=== PATIENT | female | born 1950 | race Caucasian/White ===

== ENCOUNTER 2016-10-08 11:36 | Emergency (ER) | payer BC ==
[~2016-10-08 11:36] MED LIST: ATEN25TA PO; CYCL10TA2 PO; GLIM4TAB2 PO; HYDR-971 PO; LISI-338 PO
[2016-10-08] MEDS ORDERED: KETOROLAC TROMETHAMINE 30 MG/ML INJ. IV ONE (12:15)
[2016-10-08] MEDS ORDERED: fentaNYL PF VIAL 100 MCG/2 ML VIAL IV ONE ×2 (12:15→14:00)
[2016-10-08] MEDS ORDERED: ONDANSETRON PF 4 MG/2 ML VIAL. IV ONE (12:15)
[2016-10-08 12:26] LABS: BILIRUBIN,URINE NEGATIVE (NEG); GLUCOSE,URINE >=1000 mg/dL (NEG); NITRITE,URINE NEGATIVE (NEG); PH,URINE 5.5; PROTEIN,URINE NEGATIVE (NEG-TRACE); UROBILINOGEN,URINE 0.2 mg/dL (0.2 mg/dL)
[2016-10-08 12:38] LABS: BACTERIA,URINE 0 /HPF (0-FEW); RBC,URINE 0 /HPF (0-2); SQUAMOUS EPITHELIAL CELL,UR MOD /LPF; YEAST,URINE PRESENT /HPF
[2016-10-08 12:48] LABS: BASO # 0.1 x10^3/uL (0.0-0.2); BASO % 1 % (0-3); EOS % 1 % (0-3); HEMATOCRIT 47.7 % (36.0-47.0); LYMPH % 27 % (24-48); MEAN CORPUSCULAR HEMOGLOBIN 31 pg (25-35); MEAN CORPUSCULAR HGB CONC 34 g/dL (31-37); MEAN CORPUSCULAR VOLUME 94 fL (79-100); MONO % 7 % (0-9); NEUT % 65 % (31-73); PLATELET COUNT 199 x10^3/uL (140-400); RED CELL DISTRIBUTION WIDTH 13.4 % (11.5-14.5); WHITE BLOOD COUNT 7.7 x10^3/uL (4.0-11.0)
[2016-10-08 12:55] LABS: CREATININE 0.7 mg/dL (0.6-1.0); GFR 84.2; POTASSIUM 3.9 mmol/L (3.5-5.1)
[2016-10-08 13:02] LABS: ALBUMIN 3.3 g/dL (3.4-5.0); ALBUMIN/GLOBULIN RATIO 0.8 (1.0-1.7); TOTAL BILIRUBIN 0.4 mg/dL (0.2-1.0); TOTAL PROTEIN 7.3 g/dL (6.4-8.2)
[2016-10-08] MEDS ORDERED: IV NORMAL SALINE 1000ML BAG 1,000 ML IV ONE (13:15)
--- NOTE | 2016-10-08 13:19 | PHYS DOC ---
Past Medical History Past Medical History: Diabetes-Type II, Hypertension, Other Additional Past Medical Histor: "Some kind of hernia,"-pt touches her R)upper abd. Past Surgical History: Appendectomy, Hysterectomy, Other Additional Past Surgical Histo: left ankle, breast reduction Additional Information: 3/4 PPD since age 12. Alcohol Use: None Drug Use: None Adult General Chief Complaint Chief Complaint: FLANK PAIN HPI HPI Patient is a 66 year old female presenting to ED for evaluation of R abdomen and flank pain that started 2 days ago she says that it starts in her right flank and radiates towards her right lower abdomen and is associated with nausea but no fevers chills vomiting diarrhea constipation dysuria hematuria. She reports having a cholecystectomy in the past. She is in no obvious distress with normal vital signs. Review of Systems Review of Systems Constitutional: Denies fever or chills [] Eyes: Denies change in visual acuity, redness, or eye pain [] HENT: Denies nasal congestion or sore throat [] Respiratory: Denies cough or shortness of breath [] Cardiovascular: No additional information not addressed in HPI [] GI: + abdominal pain, nausea. No vomiting, bloody stools or diarrhea [] : Denies dysuria or hematuria [] Musculoskeletal: Denies back pain or joint pain [] Integument: Denies rash or skin lesions [] Neurologic: Denies headache, focal weakness or sensory changes [] Current Medications Current Medications Current Medications Medications (Trade) Dose Ordered Sig/Frederick Start Time Stop Time Status Last Admin Dose Admin Diazepam (Valium) 2.5 mg 1X ONCE 10/08/16 14:00 10/08/16 14:01 UNV Fentanyl Citrate (Fentanyl 2ml Vial) 50 mcg 1X ONCE 10/08/16 14:00 10/08/16 14:01 UNV Ketorolac Tromethamine (Toradol) 30 mg 1X ONCE 10/08/16 12:15 10/08/16 12:17 DC 10/08/16 12:15 30 MG Ondansetron HCl (Zofran) 8 mg 1X ONCE 10/08/16 12:15 10/08/16 12:17 DC 10/08/16 12:15 8 MG Sodium Chloride 1,000 ml @ 1,000 mls/hr 1X ONCE 10/08/16 13:15 10/08/16 14:14 10/08/16 13:29 1,000 MLS/HR Allergies Allergies Allergies Coded Allergies Type Severity Reaction Last Updated Verified Horse/Equine Containing Products Allergy Intermediate 04/07/16 No erythromycin base Allergy Intermediate Rash to Face 09/15/14 No horse dander Allergy Intermediate 04/07/16 No Physical Exam Physical Exam Constitutional: Well developed, well nourished, no acute distress, non-toxic appearance. [] HENT: Normocephalic, atraumatic, bilateral external ears normal, oropharynx moist, no oral exudates, nose normal. [] Eyes: PERRLA, EOMI, conjunctiva normal, no discharge. [] Neck: Normal range of motion, no tenderness, supple, no stridor. [] Cardiovascular:Heart rate regular rhythm, no murmur [] Lungs & Thorax: Bilateral breath sounds clear to auscultation [] Abdomen: Bowel sounds normal, soft, + RUQ, RLQ tenderness, No rebound or guarding, no masses, no pulsatile masses. [] Skin: Warm, dry, no erythema, no rash. [] Back: No tenderness, + R CVA tenderness. [] Extremities: No tenderness, no cyanosis, no clubbing, ROM intact, no edema. [] Neurologic: Alert and oriented X 3, normal motor function, normal sensory function, no focal deficits noted. [] Current Patient Data Vital Signs Vital Signs Date Time Temp Pulse Resp B/P (MAP) Pulse Ox O2 Delivery O2 Flow Rate FiO2 10/08/16 12:00 97.6 63 20 140/65 (90) 99 Room Air 97.6 Lab Values Laboratory Tests Test 10/08/16 11:50 10/08/16 12:35 Urine Collection Type Unknown Urine Color Yellow Urine Clarity Clear Urine pH 5.5 Urine Specific [place] 1.010 Urine Protein Negative mg/dL (NEG-TRACE) Urine Glucose (UA) >=1000 mg/dL (NEG) Urine Ketones (Stick) Trace mg/dL (NEG) Urine Blood Negative (NEG) Urine Nitrite Negative (NEG) Urine Bilirubin Negative (NEG) Urine Urobilinogen Dipstick 0.2 mg/dL (0.2 mg/dL) Urine Leukocyte Esterase Negative (NEG) Urine RBC 0 /HPF (0-2) Urine WBC 1-4 /HPF (0-4) Urine Squamous Epithelial Cells Mod /LPF Urine Bacteria 0 /HPF (0-FEW) Urine Yeast Present /HPF White Blood Count 7.7 x10^3/uL (4.0-11.0) Red Blood Count 5.10 x10^6/uL (3.50-5.40) Hemoglobin 16.0 g/dL (12.0-15.5) H Hematocrit 47.7 % (36.0-47.0) H Mean Corpuscular Volume 94 fL (79-100) Mean Corpuscular Hemoglobin 31 pg (25-35) Mean Corpuscular Hemoglobin Concent 34 g/dL (31-37) Red Cell Distribution Width 13.4 % (11.5-14.5) Platelet Count 199 x10^3/uL (140-400) Neutrophils (%) (Auto) 65 % (31-73) Lymphocytes (%) (Auto) 27 % (24-48) Monocytes (%) (Auto) 7 % (0-9) Eosinophils (%) (Auto) 1 % (0-3) Basophils (%) (Auto) 1 % (0-3) Neutrophils # (Auto) 5.0 x10^3uL (1.8-7.7) Lymphocytes # (Auto) 2.0 x10^3/uL (1.0-4.8) Monocytes # (Auto) 0.6 x10^3/uL (0.0-1.1) Eosinophils # (Auto) 0.0 x10^3/uL (0.0-0.7) Basophils # (Auto) 0.1 x10^3/uL (0.0-0.2) Sodium Level 135 mmol/L (136-145) L Potassium Level 3.9 mmol/L (3.5-5.1) Chloride Level 99 mmol/L (98-107) Carbon Dioxide Level 26 mmol/L (21-32) Anion Gap 10 (6-14) Blood Urea Nitrogen 15 mg/dL (7-20) Creatinine 0.7 mg/dL (0.6-1.0) Estimated GFR (Cockcroft-Gault) 84.2 BUN/Creatinine Ratio 21 (6-20) H Glucose Level 300 mg/dL (70-99) H Calcium Level 9.0 mg/dL (8.5-10.1) Total Bilirubin 0.4 mg/dL (0.2-1.0) Aspartate Amino Transferase (AST) 12 U/L (15-37) L Alanine Aminotransferase (ALT) 17 U/L (14-59) Alkaline Phosphatase 137 U/L (46-116) H Total Protein 7.3 g/dL (6.4-8.2) Albumin 3.3 g/dL (3.4-5.0) L Albumin/Globulin Ratio 0.8 (1.0-1.7) L Lipase 368 U/L (73-393) Laboratory Tests 10/08/16 12:35 Laboratory Tests 10/08/16 12:35 EKG EKG [] Radiology/Procedures Radiology/Procedures EXAM: Abdomen and pelvis CT without intravenous contrast. HISTORY: Flank pain. TECHNIQUE: Computed tomographic images of the abdomen and pelvis were obtained without contrast. Multiplanar reformatting was performed. COMPARISON: None. FINDINGS: Evaluation of the lower thorax demonstrates lingular and anterior medial right middle lobe groundglass and nodular opacities, likely post infectious or post inflammatory. There is mild associated bronchiectasis. There are a few additional nodular and groundglass opacities with associated bronchiectasis within the bilateral lower lobes, also likely post infectious or post inflammatory. There is no effusion. There is fatty infiltration of the of the liver along the falciform ligament. The gallbladder is distended, likely due to the preprandial status of the patient. There is common bile duct dilatation extending to the ampulla. No obstructing lesion is seen. The pancreas, spleen and adrenal glands are unremarkable. There is a 2.2 cm cyst within the medial lower mid zone of the right kidney. There are a few punctate densities within both kidneys which may be due to tiny developing stones. There is no evidence of obstructive uropathy. There is moderate colonic stool. No abnormally thickened or dilated loop of bowel seen. There are few distal colonic diverticula. There is heavily calcified atherosclerotic plaque within the aorta and iliac bifurcation. There is suspected associated stenosis within the distal abdominal aorta. The bladder is unremarkable. The uterus is surgically absent. No pathologically enlarged lymph node is seen. There is no suspicious osseous lesion. IMPRESSION: 1. No evidence of obstructive uropathy. There are faint foci of slight hyperdensity within both kidneys, artifactual or due to tiny developing stones. 2. Distal colonic diverticulosis. 3. Biliary ductal dilatation. This is greater than expected for patient age. ERCP or MRCP can be performed if there is concern for an obstructing etiology. 4. 2.2 cm simple appearing right renal cyst. 5. Multiple groundglass and nodular opacities within the right middle lobe, lingular and bilateral lower lobes. The presence of bronchiectasis within these locations favors a chronic etiology. The possibility of superimposed atypical infiltrate is not excluded. Follow-up can be performed to confirm stability or resolution. PQRS Compliance Statement: One or more of the following individualized dose reduction techniques were utilized for this examination: 1. Automated exposure control 2. Adjustment of the mA and/or kV according to patient size 3. Use of iterative reconstruction technique DICTATED and SIGNED BY: JEAN PAUL LEWIS MD DATE: 10/08/16 1330 Course & Med Decision Making Course & Med Decision Making Patient's workup is fairly unremarkable. Labs and CT are benign. She did have dilated common bile duct however her labs are normal including her bilirubin and LFTs. Patient says her pain is much improved. I discussed admission for possible ERCP versus MRCP however patient said that she is feeling better and wants to go home and would like to pursue further workup as an outpatient. I think that this is reasonable given she appears well and she can tolerate by mouth and her labs are normal. I told her that if she has intractable pain fevers vomiting jaundice or other general concerns that she should return to the emergency department but otherwise can follow with a GI physician as an outpatient. Patient aware and agreeable with plan for discharge and verbalized understanding of the need for short-term follow-up and strict ER return precautions discussed as above. Dragon Disclaimer Dragon Disclaimer This electronic medical record was generated, in whole or in part, using a voice recognition dictation system. Departure Departure Impression: Primary Impression: Abdominal pain Additional Impression: Flank pain Disposition: HOME, SELF-CARE Condition: GOOD Referrals: LEONELA DIA MD Patient Instructions: Abdominal Pain (Nonspecific) Additional Instructions: Eat a soft non-irritating diet and follow with the GI physician next week and come back to the ER sooner with worsening pain fevers vomiting or other general concerns. Scripts Ondansetron (ZOFRAN ODT) 4 Mg Tab.rapdis 4 MG PO BID Y for NAUSEA/VOMITING, #14 TAB Prov: MAHNAZ ADAMS DO 10/08/16 Hydrocodone/Apap 5-325 (NORCO 5-325 TABLET) 1 Each Tablet 1 TAB PO PRN Q6HRS Y for PAIN, #20 TAB 0 Refills Prov: MAHNAZ ADAMS DO 10/08/16 Problem Qualifiers Primary Impression: Abdominal pain Abdominal location: right lower quadrant Qualified Codes: R10.31 - Right lower quadrant pain MAHNAZ ADAMS DO October 08, 2016 13:19
--- NOTE | 2016-10-08 13:36 | RAD ---
EXAM: Abdomen and pelvis CT without intravenous contrast. HISTORY: Flank pain. TECHNIQUE: Computed tomographic images of the abdomen and pelvis were obtained without contrast. Multiplanar reformatting was performed. COMPARISON: None. FINDINGS: Evaluation of the lower thorax demonstrates lingular and anterior medial right middle lobe groundglass and nodular opacities, likely post infectious or post inflammatory. There is mild associated bronchiectasis. There are a few additional nodular and groundglass opacities with associated bronchiectasis within the bilateral lower lobes, also likely post infectious or post inflammatory. There is no effusion. There is fatty infiltration of the of the liver along the falciform ligament. The gallbladder is distended, likely due to the preprandial status of the patient. There is common bile duct dilatation extending to the ampulla. No obstructing lesion is seen. The pancreas, spleen and adrenal glands are unremarkable. There is a 2.2 cm cyst within the medial lower mid zone of the right kidney. There are a few punctate densities within both kidneys which may be due to tiny developing stones. There is no evidence of obstructive uropathy. There is moderate colonic stool. No abnormally thickened or dilated loop of bowel seen. There are few distal colonic diverticula. There is heavily calcified atherosclerotic plaque within the aorta and iliac bifurcation. There is suspected associated stenosis within the distal abdominal aorta. The bladder is unremarkable. The uterus is surgically absent. No pathologically enlarged lymph node is seen. There is no suspicious osseous lesion. IMPRESSION: 1. No evidence of obstructive uropathy. There are faint foci of slight hyperdensity within both kidneys, artifactual or due to tiny developing stones. 2. Distal colonic diverticulosis. 3. Biliary ductal dilatation. This is greater than expected for patient age. ERCP or MRCP can be performed if there is concern for an obstructing etiology. 4. 2.2 cm simple appearing right renal cyst. 5. Multiple groundglass and nodular opacities within the right middle lobe, lingular and bilateral lower lobes. The presence of bronchiectasis within these locations favors a chronic etiology. The possibility of superimposed atypical infiltrate is not excluded. Follow-up can be performed to confirm stability or resolution. PQRS Compliance Statement: One or more of the following individualized dose reduction techniques were utilized for this examination: 1. Automated exposure control 2. Adjustment of the mA and/or kV according to patient size 3. Use of iterative reconstruction technique
[2016-10-08 14:00] VITALS: BP 151/67
[2016-10-08] MEDS ORDERED: diazePAM 5 MG TABLET PO ONE (14:00)
[2016-10-08] MEDS ORDERED: HYDR-971 PO (14:04)
[2016-10-08] MEDS ORDERED: ONDA4TAB10 PO (14:04)
== END 2016-10-08 14:24 | disposition home or self-care (01) ==
LOC: ER 11:36
DX: R10.31 Right lower quadrant pain (principal); R11.0 Nausea; E11.9 Type 2 diabetes mellitus without complications; I10 Essential (primary) hypertension; Z90.710 Acquired absence of both cervix and uterus; Z90.49 Acquired absence of other specified parts of digestive tract; F17.200 Nicotine dependence, unspecified, uncomplicated; Z88.1 Allergy status to other antibiotic agents; Z91.048 Other nonmedicinal substance allergy status
CPT/HCPCS: 36415; 74176; 80053; 81001; 83690; 85027; 96361; 96374; 96375; 99285; J1885; J2405; J3010; J7030

== ENCOUNTER 2017-01-31 08:29 | Observation (INO) | payer BC ==
[~2017-01-31] VITALS: Ht 156.2 cm; Wt 51.4 kg
[~2017-01-31 08:29] MED LIST changes: +ONDA4TAB10 PO
--- NOTE | 2017-01-31 09:07 | PHYS DOC ---
Past Medical History Past Medical History: Diabetes-Type II, Hypertension, Other Additional Past Medical Histor: "Some kind of hernia,"-pt touches her R)upper abd. Past Surgical History: Appendectomy, Hysterectomy, Other Additional Past Surgical Histo: left ankle, breast reduction Alcohol Use: None Drug Use: None Adult General Chief Complaint Chief Complaint: RIB PAIN [facility] HPI Patient is a 66 year old female presents to the ED complaining of left rib tenderness 1 month. Patient states the pain has been worsening over the last month. Describes pain as sharp with palpation. Rates pain 7 out of 10. Patient states she has been diagnosed with hypertension and diabetes (type 2) but has not been taking her medications for over 3 months. Denies shortness of breath, dizziness, syncope, fever, headache, nausea/vomiting or abdominal pain. Review of Systems Review of Systems Constitutional: Denies fever or chills [] Eyes: Denies change in visual acuity, redness, or eye pain [] HENT: Denies nasal congestion or sore throat [] Respiratory: Denies cough or shortness of breath [] Cardiovascular: No additional information not addressed in HPI [] GI: Denies abdominal pain, nausea, vomiting, bloody stools or diarrhea [] : Denies dysuria or hematuria [] Musculoskeletal: Denies back pain or joint pain [] Integument: Denies rash or skin lesions [] Neurologic: Denies headache, focal weakness or sensory changes [] Endocrine: Complains of polydipsia. [] Current Medications Current Medications Current Medications Medications (Trade) Dose Ordered Sig/Frederick Start Time Stop Time Status Last Admin Dose Admin Info (Do NOT chart on this entry -- for MONITORING) 1 each PRN DAILY PRN 01/31/17 10:30 02/02/17 10:29 Insulin Human Regular (NovoLIN R VIAL) 10 unit 1X ONCE 01/31/17 10:45 01/31/17 10:46 DC 01/31/17 11:01 10 UNIT Iohexol (Omnipaque 300 Mg/ml) 75 ml STK-MED ONCE 01/31/17 10:32 01/31/17 10:33 DC Ketorolac Tromethamine (Toradol) 30 mg 1X ONCE 01/31/17 09:15 01/31/17 09:16 DC 01/31/17 10:03 30 MG Sodium Chloride 1,000 ml @ 1,000 mls/hr 1X ONCE 01/31/17 10:45 01/31/17 11:44 DC 01/31/17 11:00 1,000 MLS/HR Allergies Allergies Allergies Coded Allergies Type Severity Reaction Last Updated Verified Horse/Equine Containing Products Allergy Intermediate 01/31/17 No erythromycin base Allergy Intermediate Rash to Face 01/31/17 No horse dander Allergy Intermediate 01/31/17 No Physical Exam Physical Exam Constitutional: Well developed, well nourished, no acute distress, non-toxic appearance. [] HENT: Normocephalic, atraumatic, bilateral external ears normal, oropharynx moist, no oral exudates, nose normal. [] Eyes: PERRLA, EOMI, conjunctiva normal, no discharge. [] Neck: Normal range of motion, no tenderness, supple, no stridor. [] Cardiovascular:Heart rate regular rhythm, no murmur [] Lungs & Thorax: MILD LEFT ANTERIOR LOWER RIB TENDERNESS. Bilateral breath sounds clear to auscultation [] Abdomen: Bowel sounds normal, soft, no tenderness, no masses, no pulsatile masses. [] Skin: Warm, dry, no erythema, no rash. [] Back: No tenderness, no CVA tenderness. [] Extremities: No tenderness, no cyanosis, no clubbing, ROM intact, no edema. [] Neurologic: Alert and oriented X 3, normal motor function, normal sensory function, no focal deficits noted. [] Psychologic: Affect normal, judgement normal, mood normal. [] Current Patient Data Vital Signs Vital Signs Date Time Temp Pulse Resp B/P (MAP) Pulse Ox O2 Delivery O2 Flow Rate FiO2 01/31/17 10:55 78 18 124/59 (80) 95 Room Air 01/31/17 08:37 98.1 98.1 Lab Values Laboratory Tests Test 01/31/17 09:55 01/31/17 10:35 White Blood Count 9.0 x10^3/uL (4.0-11.0) Red Blood Count 4.88 x10^6/uL (3.50-5.40) Hemoglobin 15.6 g/dL (12.0-15.5) H Hematocrit 45.7 % (36.0-47.0) Mean Corpuscular Volume 94 fL (79-100) Mean Corpuscular Hemoglobin 32 pg (25-35) Mean Corpuscular Hemoglobin Concent 34 g/dL (31-37) Red Cell Distribution Width 13.4 % (11.5-14.5) Platelet Count 223 x10^3/uL (140-400) Neutrophils (%) (Auto) 66 % (31-73) Lymphocytes (%) (Auto) 22 % (24-48) L Monocytes (%) (Auto) 9 % (0-9) Eosinophils (%) (Auto) 1 % (0-3) Basophils (%) (Auto) 1 % (0-3) Neutrophils # (Auto) 6.0 x10^3uL (1.8-7.7) Lymphocytes # (Auto) 2.0 x10^3/uL (1.0-4.8) Monocytes # (Auto) 0.8 x10^3/uL (0.0-1.1) Eosinophils # (Auto) 0.1 x10^3/uL (0.0-0.7) Basophils # (Auto) 0.1 x10^3/uL (0.0-0.2) Prothrombin Time 11.8 SEC (11.7-14.0) Prothrombin Time INR 0.9 (0.8-1.1) Sodium Level 136 mmol/L (136-145) Potassium Level 4.2 mmol/L (3.5-5.1) Chloride Level 100 mmol/L (98-107) Carbon Dioxide Level 27 mmol/L (21-32) Anion Gap 9 (6-14) Blood Urea Nitrogen 22 mg/dL (7-20) H Creatinine 0.8 mg/dL (0.6-1.0) Estimated GFR (Cockcroft-Gault) 72.2 Glucose Level 603 mg/dL (70-99) *H Calcium Level 9.1 mg/dL (8.5-10.1) Total Bilirubin 0.2 mg/dL (0.2-1.0) Direct Bilirubin < 0.1 mg/dL (0.0-0.2) Aspartate Amino Transferase (AST) 12 U/L (15-37) L Alanine Aminotransferase (ALT) 19 U/L (14-59) Alkaline Phosphatase 178 U/L (46-116) H Creatine Kinase 44 U/L (26-192) Creatine Kinase MB (Mass) 1.1 ng/mL (0.0-3.6) Creatine Kinase MB Relative Index % (0-4) Troponin I Quantitative < 0.017 ng/mL (0.000-0.055) Total Protein 6.7 g/dL (6.4-8.2) Albumin 3.1 g/dL (3.4-5.0) L Lipase 234 U/L (73-393) Acetone Level Neg (NEG) Urine Collection Type Unknown Urine Color Yellow Urine Clarity Clear Urine pH 5.5 Urine Specific [place] >=1.030 Urine Protein Negative mg/dL (NEG-TRACE) Urine Glucose (UA) >=1000 mg/dL (NEG) Urine Ketones (Stick) Negative mg/dL (NEG) Urine Blood Negative (NEG) Urine Nitrite Negative (NEG) Urine Bilirubin Small (NEG) Urine Urobilinogen Dipstick 0.2 mg/dL (0.2 mg/dL) Urine Leukocyte Esterase Negative (NEG) Urine RBC 0 /HPF (0-2) Urine WBC Occ /HPF (0-4) Urine Squamous Epithelial Cells Occ /LPF Urine Bacteria 0 /HPF (0-FEW) Urine Yeast Present /HPF Laboratory Tests 01/31/17 09:55 Laboratory Tests 01/31/17 09:55 EKG EKG [] Radiology/Procedures Radiology/Procedures PROCEDURE: RIBS LEFT AND PA CHEST Indication pain. A single view of the chest was obtained as well as films targeted to left ribs. There are probable background changes of fibrosis. There is some volume loss at the left lung base probably reflecting atelectasis or scar. The appearance is similar to the previous exam. There is a possible subtle nodule at the right lung base. Follow-up imaging advised. A parenchymal nodule is not excluded. There is no pleural fluid or pneumothorax. Films of left ribs appear unremarkable. IMPRESSION: No acute finding in the chest. Possible subtle nodule at the right lung base. See above discussion. Normal plain films left ribs. [] PROCEDURE: CT CHEST W/CONTRAST CT of the chest with contrast, 01/31/2017: History: Left rib pain Multidetector CT imaging was performed following an IV bolus injection of iodinated contrast material. There is moderate calcific plaquing of the thoracic aorta and its branches without evidence of aneurysm. Minimal coronary artery calcifications are present. A small precarinal lymph node demonstrates a short axis dimension of 9 mm. Several small lymph nodes are present at the AP window level. No definite mediastinal or hilar adenopathy is seen. There are mild emphysematous changes in the lungs. There are mild tree-in-bud type opacities present anteromedially in the right upper lobe. There are streaky parenchymal opacities with underlying bronchiectasis in the inferolateral medial aspect of the right middle lobe. Similar densities are present in the left lung base and anterior inferior aspect of the lingula. The findings suggest scarring and/or chronic inflammation. There is no evidence of pleural fluid. There is a slightly spiculated 8 mm noncalcified nodule in the posterior aspect of the left upper lobe. It abuts the oblique fissure but does not have the typical appearance of a benign perifissural nodule. This is best seen on axial image 65 of series #6. There are mild scattered degenerative changes in the spine. No rib fracture is identified. IMPRESSION: 1. Emphysema. 2. Mild tree-in-bud opacities in the right upper lobe may be due to active infection or scarring. 3. Several foci of bronchiectasis and probable scarring in the lower chest bilaterally as described above. 4. Small spiculated nodule in the left upper lobe raising the possibility of a lung malignancy. The lesion is considered to be of borderline size for PET/CT evaluation. Course & Med Decision Making Course & Med Decision Making Pertinent Labs and Imaging studies reviewed. (See chart for details) []EKG shows normal sinus rhythm at 79 bpm. No STEMI or acute changes. Patients glucose found to be 600's. Patient given 10 units of insulin and fluids. Well appearing. Reviewed other labs and imaging. Will admit for further work-up and admission. Discussed case with Dr. Ceballos. Agrees to admission and further management. Dragon Disclaimer Dragon Disclaimer This electronic medical record was generated, in whole or in part, using a voice recognition dictation system. Departure Departure Impression: Primary Impression: Hyperglycemia Additional Impression: Lung nodule Disposition: ADMITTED INPATIENT Admitting Physician: Deirdre Ceballos Condition: STABLE Referrals: NO PCP (PCP) Problem Qualifiers DIANE WAYNE Jan 31, 2017 09:07
[2017-01-31] MEDS ORDERED: KETOROLAC 30 MG/ML INJ. IV ONE (09:15)
--- NOTE | 2017-01-31 09:36 | RAD ---
Indication pain. A single view of the chest was obtained as well as films targeted to left ribs. There are probable background changes of fibrosis. There is some volume loss at the left lung base probably reflecting atelectasis or scar. The appearance is similar to the previous exam. There is a possible subtle nodule at the right lung base. Follow-up imaging advised. A parenchymal nodule is not excluded. There is no pleural fluid or pneumothorax. Films of left ribs appear unremarkable. IMPRESSION: No acute finding in the chest. Possible subtle nodule at the right lung base. See above discussion. Normal plain films left ribs.
--- NOTE | 2017-01-31 10:03 | EKG ---
[facility] [address] [place] [address] Test Date: 2017-01-31 Test Time: 09:43:33 Pat Name: MARIELA IZQUIERDO Department: Room: Gender: F Media/Instructional Designer: : 1950 Requested By: DIANE WAYNE Order Number: [id number] Reading MD: Gisele Zuñiga Measurements Intervals [place] Rate: 79 P: 90 [place]: 158 QRS: 51 QRSD: 82 T: 39 QT: 380 QTc: 437 Interpretive Statements SINUS RHYTHM NORMAL ECG Electronically Signed On 02-05-2017 21:46:39 CDT by Gisele Zuñiga
[2017-01-31 10:11] LABS: BASO # 0.1 x10^3/uL (0.0-0.2); BASO % 1 % (0-3); EOS % 1 % (0-3); HEMATOCRIT 45.7 % (36.0-47.0); HEMOGLOBIN 15.6 g/dL (12.0-15.5); LYMPH % 22 % (24-48); MEAN CORPUSCULAR HEMOGLOBIN 32 pg (25-35); MEAN CORPUSCULAR HGB CONC 34 g/dL (31-37); MEAN CORPUSCULAR VOLUME 94 fL (79-100); MONO % 9 % (0-9); NEUT % 66 % (31-73); PLATELET COUNT 223 x10^3/uL (140-400); RED BLOOD COUNT 4.88 x10^6/uL (3.50-5.40); RED CELL DISTRIBUTION WIDTH 13.4 % (11.5-14.5)
[2017-01-31] MEDS ORDERED: IOHEXOL 300 MG/ML 75 ML VIAL IV ONE (10:15)
[2017-01-31 10:23] LABS: ALBUMIN 3.1 g/dL (3.4-5.0); ALK PHOS 178 U/L (46-116); ALT (SGPT) 19 U/L (14-59); ANION GAP 9 (6-14); AST (SGOT) 12 U/L (15-37); BLOOD UREA NITROGEN 22 mg/dL (7-20); CALCIUM 9.1 mg/dL (8.5-10.1); CARBON DIOXIDE 27 mmol/L (21-32); CHLORIDE 100 mmol/L (98-107); CREATININE 0.8 mg/dL (0.6-1.0); DIRECT BILIRUBIN < 0.1 mg/dL (0.0-0.2); GFR 72.2; POTASSIUM 4.2 mmol/L (3.5-5.1); SODIUM 136 mmol/L (136-145); TOTAL BILIRUBIN 0.2 mg/dL (0.2-1.0); TOTAL PROTEIN 6.7 g/dL (6.4-8.2)
[2017-01-31 10:24] LABS: INR 0.9 (0.8-1.1); PROTHROMBIN TIME PATIENT 11.8 SEC (11.7-14.0)
[2017-01-31 10:26] LABS: GLUCOSE 603 mg/dL (70-99)
[2017-01-31 10:29] LABS: CKMB MASS 1.1 ng/mL (0.0-3.6); CREATINE KINASE 44 U/L (26-192)
[2017-01-31] MEDS ORDERED: CONTRAST GIVEN MC PRN (10:30)
[2017-01-31] MEDS ORDERED: IOHEXOL 300 MG/ML 75 ML VIAL ONE (10:32)
[2017-01-31 10:44] LABS: BILIRUBIN,URINE SMALL (NEG); GLUCOSE,URINE >=1000 mg/dL (NEG); NITRITE,URINE NEGATIVE (NEG); PH,URINE 5.5; PROTEIN,URINE NEGATIVE (NEG-TRACE); UROBILINOGEN,URINE 0.2 mg/dL (0.2 mg/dL)
[2017-01-31] MEDS ORDERED: IV NORMAL SALINE 1000ML BAG 1,000 ML IV ONE (10:45)
[2017-01-31] MEDS ORDERED: INSULIN REGULAR 100 UNIT/ML 10ML VIAL. IV ONE (10:45)
--- NOTE | 2017-01-31 11:05 | RAD ---
CT of the chest with contrast, 01/31/2017: History: Left rib pain Multidetector CT imaging was performed following an IV bolus injection of iodinated contrast material. There is moderate calcific plaquing of the thoracic aorta and its branches without evidence of aneurysm. Minimal coronary artery calcifications are present. A small precarinal lymph node demonstrates a short axis dimension of 9 mm. Several small lymph nodes are present at the AP window level. No definite mediastinal or hilar adenopathy is seen. There are mild emphysematous changes in the lungs. There are mild tree-in-bud type opacities present anteromedially in the right upper lobe. There are streaky parenchymal opacities with underlying bronchiectasis in the inferolateral medial aspect of the right middle lobe. Similar densities are present in the left lung base and anterior inferior aspect of the lingula. The findings suggest scarring and/or chronic inflammation. There is no evidence of pleural fluid. There is a slightly spiculated 8 mm noncalcified nodule in the posterior aspect of the left upper lobe. It abuts the oblique fissure but does not have the typical appearance of a benign perifissural nodule. This is best seen on axial image 65 of series #6. There are mild scattered degenerative changes in the spine. No rib fracture is identified. IMPRESSION: 1. Emphysema. 2. Mild tree-in-bud opacities in the right upper lobe may be due to active infection or scarring. 3. Several foci of bronchiectasis and probable scarring in the lower chest bilaterally as described above. 4. Small spiculated nodule in the left upper lobe raising the possibility of a lung malignancy. The lesion is considered to be of borderline size for PET/CT evaluation. PQRS Compliance Statement: One or more of the following individualized dose reduction techniques were utilized for this examination: 1. Automated exposure control 2. Adjustment of the mA and/or kV according to patient size 3. Use of iterative reconstruction technique
[2017-01-31 11:11] LABS: BACTERIA,URINE 0 /HPF (0-FEW); RBC,URINE 0 /HPF (0-2); SQUAMOUS EPITHELIAL CELL,UR OCC /LPF; WBC,URINE OCC /HPF (0-4); YEAST,URINE PRESENT /HPF
[2017-01-31] MEDS ORDERED: ONDANSETRON PF 4 MG/2 ML VIAL. IV PRN (11:45)
--- NOTE | 2017-01-31 14:08 | PDOC1 ---
History and Physical Date of Admission Date of Admission DATE: 01/31/17 TIME: 14:02 Identification/Chief Complaint Chief Complaint chest pain Problems: Source Source: Chart review, Patient History of Present Illness History of Present Illness Miss Bean is a 66 year old female admit for chest pain, worsening left rib tenderness 1 month. pain is sharp, better after IV toradol in ER, pain 7/10, now 5/10 Hx htn and DM2, she feels treated well with diet and weight loss, she lost over 80 lbs intentionally to control her DM2, and has been off meds for over a year, weigth stable > 1 year no doctor visit > 1 year Past Medical History Cardiovascular: No pertinent hx Pulmonary: No pertinent hx GI: No pertinent hx Heme/Onc: No pertinent hx Hepatobiliary: No pertinent hx Musculoskeletal: low back pain Rheumatologic: No pertinent hx ENT: No pertinent hx Renal/: No pertinent hx Endocrine: Diabetes Family History Family History: No Significant Social History Smoke: <1 pack per day ALCOHOL: none Drugs: None Current Problem List Problem List Problems Medical Problems: (1) Hyperglycemia Status: Acute (2) Lung nodule Status: Acute Problems: Current Medications Current Medications Current Medications Ketorolac Tromethamine (Toradol) 30 mg 1X ONCE IV Last administered on 10:03; Start 01/31/17 at 09:15; Stop 01/31/17 at 09:16; Status DC Iohexol (Omnipaque 300 Mg/ml) 75 ml 1X ONCE IV Last administered on 01/31/17t 10:35; Start 01/31/17 at 10:15; Stop 01/31/17 at 10:16; Status DC Info (Do NOT chart on this entry -- for MONITORING) 1 each PRN DAILY PRN MC SEE COMMENTS; Start 01/31/17 at 10:30; Stop 02/02/17 at 10:29 Iohexol (Omnipaque 300 Mg/ml) 75 ml STK-MED ONCE .ROUTE ; Start 01/31/17 at 10: 32; Stop 01/31/17 at 10:33; Status DC Sodium Chloride 1,000 ml @ 1,000 mls/hr 1X ONCE IV Last administered on t 11:00; Start 01/31/17 at 10:45; Stop 01/31/17 at 11:44; Status DC Insulin Human Regular (NovoLIN R VIAL) 10 unit 1X ONCE IV Last administered on 01/31/17t 11:01; Start 01/31/17 at 10:45; Stop 01/31/17 at 10:46; Status DC Ondansetron HCl (Zofran) 4 mg PRN Q8HRS PRN IV NAUSEA/VOMITING; Start 01/31/17 at 11:45; Stop 02/01/17 at 11:44 Active Scripts Active Zofran Odt (Ondansetron) 4 Mg Tab.rapdis 4 Mg PO BID PRN [place] 5-325 Tablet (Acetaminophen/Hydrocodone Bitart) 1 Each Tablet 1 Tab PO PRN Q6HRS PRN [place] 5-325 Tablet (Acetaminophen/Hydrocodone Bitart) 1 Each Tablet 1 Tab PO PRN Q6HRS PRN Reported Cyclobenzaprine Hcl 10 Mg Tablet 1 Tab PO QHS Lisinopril 5 Mg Tablet 1 Tab PO DAILY Glimepiride 4 Mg Tablet 1 Tab PO DAILY Atenolol 25 Mg Tablet 1 Tab PO DAILY Allergies Allergies: Coded Allergies: Horse/Equine Containing Products (Unverified Allergy, Intermediate, ) erythromycin base (Unverified Allergy, Intermediate, Rash to Face, 01/31/17 ) horse dander (Unverified Allergy, Intermediate, 01/31/17) ROS General: No: Chills, Night Sweats, Fatigue, Malaise, Other PSYCHOLOGICAL ROS: YES: Sleep disturbances, No: Anxiety, Behavioral Disorder, Concentration difficultie, Decreased libido , Depression, Disorientation, Hallucinations, Hostility, Irritablity, Memory difficulties, Mood Swings, Obsessive thoughts, Other Eyes: No Blurry vision, No Decreased vision, No Double vision, No Dry eyes, No Excessive tearing, No Eye Pain, No Itchy Eyes, No Loss of vision, No Photophobia , No Scotomata, No Uses contacts, No Uses glasses, No Other HEENT: No: Heacaches, Visual Changes, Hearing change, Nasal congestion, Nasal discharge, Oral lesions, Sinus pain, Sore Throat, Epistaxis, Sneezing, Snoring, Tinnitus, Vertigo, Vocal changes, Other Respiratory: YES: Cough, No: Hemoptysis, Orthopnea, Pleuritic Pain, Shortness of breath, SOB with excertion, Sputum Changes, Stridor, Tachypnea, Wheezing, Other Cardiovascular: yes Chest Pain Gastrointestinal: No Nausea, No Vomiting, No Abdominal Pain, No Diarrhea, No Constipation, No Melena, No Hematochezia, No Other Genitourinary: No Dysuria, No Frequency, No Incontinence, No Hematuria, No Retention, No Discharge, No Urgency, No Pain, No Flank Pain, No Other, No , No , No , No , No , No , No Musculoskeletal: No Gait Disturbance, No Joint Pain, No Joint Stiffness, No Joint Swelling, No Muscle Pain, No Muscular Weakness, No Pain In:, No Swelling In:, No Other Neurological: No Behavorial Changes, No Bowel/Bladder ControlChng, No Confusion , No Dizziness, No Gait Disturbance, No Headaches, No Impaired Coord/balance, No Memory Loss, No Numbness/Tingling, No Seizures, No Speech Problems, No Tremors, No Visual Changes, No Weakness, No Other Skin: Yes Dry Skin, No Eczema, No Hair Changes, No Lumps, No Mole Changes, No Mottling, No Nail Changes, No Pruritus, No Rash, No Skin Lesion Changes, No Other, No Acne Physical Exam General: Alert, Oriented X3, Cooperative, No acute distress HEENT: Atraumatic, PERRLA, EOMI, Mucous membr. moist/pink Lungs: Normal air movement, Other (no wheeze) Heart: no gallops, no murmurs Abdomen: Normal bowel sounds, Soft Rectal Exam: not examined Extremities: No clubbing, No edema, Normal pulses Skin: No rashes, No breakdown, No significant lesion Neuro: Normal speech, Normal tone, Sensation intact Psych/Mental Status: Mood NL Vitals Vitals Vital Signs Date Time Temp Pulse Resp B/P (MAP) Pulse Ox O2 Delivery O2 Flow Rate FiO2 01/31/17 13:47 68 21 127/58 (81) 95 Room Air 01/31/17 08:37 98.1 98.1 Labs Labs Laboratory Tests Test 01/31/17 09:55 01/31/17 10:35 01/31/17 11:55 01/31/17 12:47 White Blood Count 9.0 x10^3/uL (4.0-11.0) Red Blood Count 4.88 x10^6/uL (3.50-5.40) Hemoglobin 15.6 g/dL (12.0-15.5) Hematocrit 45.7 % (36.0-47.0) Mean Corpuscular Volume 94 fL (79-100) Mean Corpuscular Hemoglobin 32 pg (25-35) Mean Corpuscular Hemoglobin Concent 34 g/dL (31-37) Red Cell Distribution Width 13.4 % (11.5-14.5) Platelet Count 223 x10^3/uL (140-400) Neutrophils (%) (Auto) 66 % (31-73) Lymphocytes (%) (Auto) 22 % (24-48) Monocytes (%) (Auto) 9 % (0-9) Eosinophils (%) (Auto) 1 % (0-3) Basophils (%) (Auto) 1 % (0-3) Neutrophils # (Auto) 6.0 x10^3uL (1.8-7.7) Lymphocytes # (Auto) 2.0 x10^3/uL (1.0-4.8) Monocytes # (Auto) 0.8 x10^3/uL (0.0-1.1) Eosinophils # (Auto) 0.1 x10^3/uL (0.0-0.7) Basophils # (Auto) 0.1 x10^3/uL (0.0-0.2) Prothrombin Time 11.8 SEC (11.7-14.0) Prothromb Time International Ratio 0.9 (0.8-1.1) Sodium Level 136 mmol/L (136-145) Potassium Level 4.2 mmol/L (3.5-5.1) Chloride Level 100 mmol/L (98-107) Carbon Dioxide Level 27 mmol/L (21-32) Anion Gap 9 (6-14) Blood Urea Nitrogen 22 mg/dL (7-20) Creatinine 0.8 mg/dL (0.6-1.0) Estimated GFR (Cockcroft-Gault) 72.2 Glucose Level 603 mg/dL (70-99) Calcium Level 9.1 mg/dL (8.5-10.1) Total Bilirubin 0.2 mg/dL (0.2-1.0) Direct Bilirubin < 0.1 mg/dL (0.0-0.2) Aspartate Amino Transf (AST/SGOT) 12 U/L (15-37) Alanine Aminotransferase (ALT/SGPT) 19 U/L (14-59) Alkaline Phosphatase 178 U/L (46-116) Creatine Kinase 44 U/L (26-192) Creatine Kinase MB (Mass) 1.1 ng/mL (0.0-3.6) Creatine Kinase MB Relative Index % (0-4) Troponin I Quantitative < 0.017 ng/mL (0.000-0.055) < 0.017 ng/mL (0.000-0.055) Total Protein 6.7 g/dL (6.4-8.2) Albumin 3.1 g/dL (3.4-5.0) Lipase 234 U/L (73-393) Acetone Level Neg (NEG) Urine Collection Type Unknown Urine Color Yellow Urine Clarity Clear Urine pH 5.5 Urine Specific [place] >=1.030 Urine Protein Negative mg/dL (NEG-TRACE) Urine Glucose (UA) >=1000 mg/dL (NEG) Urine Ketones (Stick) Negative mg/dL (NEG) Urine Blood Negative (NEG) Urine Nitrite Negative (NEG) Urine Bilirubin Small (NEG) Urine Urobilinogen Dipstick 0.2 mg/dL (0.2 mg/dL) Urine Leukocyte Esterase Negative (NEG) Urine RBC 0 /HPF (0-2) Urine WBC Occ /HPF (0-4) Urine Squamous Epithelial Cells Occ /LPF Urine Bacteria 0 /HPF (0-FEW) Urine Yeast Present /HPF Glucose (Fingerstick) 305 mg/dL (70-99) Laboratory Tests Test 01/31/17 09:55 01/31/17 10:35 01/31/17 11:55 01/31/17 12:47 White Blood Count 9.0 x10^3/uL (4.0-11.0) Red Blood Count 4.88 x10^6/uL (3.50-5.40) Hemoglobin 15.6 g/dL (12.0-15.5) Hematocrit 45.7 % (36.0-47.0) Mean Corpuscular Volume 94 fL (79-100) Mean Corpuscular Hemoglobin 32 pg (25-35) Mean Corpuscular Hemoglobin Concent 34 g/dL (31-37) Red Cell Distribution Width 13.4 % (11.5-14.5) Platelet Count 223 x10^3/uL (140-400) Neutrophils (%) (Auto) 66 % (31-73) Lymphocytes (%) (Auto) 22 % (24-48) Monocytes (%) (Auto) 9 % (0-9) Eosinophils (%) (Auto) 1 % (0-3) Basophils (%) (Auto) 1 % (0-3) Neutrophils # (Auto) 6.0 x10^3uL (1.8-7.7) Lymphocytes # (Auto) 2.0 x10^3/uL (1.0-4.8) Monocytes # (Auto) 0.8 x10^3/uL (0.0-1.1) Eosinophils # (Auto) 0.1 x10^3/uL (0.0-0.7) Basophils # (Auto) 0.1 x10^3/uL (0.0-0.2) Prothrombin Time 11.8 SEC (11.7-14.0) Prothromb Time International Ratio 0.9 (0.8-1.1) Sodium Level 136 mmol/L (136-145) Potassium Level 4.2 mmol/L (3.5-5.1) Chloride Level 100 mmol/L (98-107) Carbon Dioxide Level 27 mmol/L (21-32) Anion Gap 9 (6-14) Blood Urea Nitrogen 22 mg/dL (7-20) Creatinine 0.8 mg/dL (0.6-1.0) Estimated GFR (Cockcroft-Gault) 72.2 Glucose Level 603 mg/dL (70-99) Calcium Level 9.1 mg/dL (8.5-10.1) Total Bilirubin 0.2 mg/dL (0.2-1.0) Direct Bilirubin < 0.1 mg/dL (0.0-0.2) Aspartate Amino Transf (AST/SGOT) 12 U/L (15-37) Alanine Aminotransferase (ALT/SGPT) 19 U/L (14-59) Alkaline Phosphatase 178 U/L (46-116) Creatine Kinase 44 U/L (26-192) Creatine Kinase MB (Mass) 1.1 ng/mL (0.0-3.6) Creatine Kinase MB Relative Index % (0-4) Troponin I Quantitative < 0.017 ng/mL (0.000-0.055) < 0.017 ng/mL (0.000-0.055) Total Protein 6.7 g/dL (6.4-8.2) Albumin 3.1 g/dL (3.4-5.0) Lipase 234 U/L (73-393) Acetone Level Neg (NEG) Urine Collection Type Unknown Urine Color Yellow Urine Clarity Clear Urine pH 5.5 Urine Specific [place] >=1.030 Urine Protein Negative mg/dL (NEG-TRACE) Urine Glucose (UA) >=1000 mg/dL (NEG) Urine Ketones (Stick) Negative mg/dL (NEG) Urine Blood Negative (NEG) Urine Nitrite Negative (NEG) Urine Bilirubin Small (NEG) Urine Urobilinogen Dipstick 0.2 mg/dL (0.2 mg/dL) Urine Leukocyte Esterase Negative (NEG) Urine RBC 0 /HPF (0-2) Urine WBC Occ /HPF (0-4) Urine Squamous Epithelial Cells Occ /LPF Urine Bacteria 0 /HPF (0-FEW) Urine Yeast Present /HPF Glucose (Fingerstick) 305 mg/dL (70-99) Images Images CT scan IMPRESSION: 1. Emphysema. 2. Mild tree-in-bud opacities in the right upper lobe may be due to active infection or scarring. 3. Several foci of bronchiectasis and probable scarring in the lower chest bilaterally as described above. 4. Small spiculated nodule in the left upper lobe raising the possibility of a lung malignancy. The lesion is considered to be of borderline size for PET/CT evaluation. VTE Prophylaxis Ordered VTE Prophylaxis Devices: Yes VTE Pharmacological Prophylaxi: Yes Assessment/Plan Assessment/Plan chest pain, will obs to R/o ACS as started by ER but CT scan chest shows likely source of pain Small spiculated nodule in the left upper lobe w/ possibility of a lung malignancy. consult Alessio rothman to follow may be able to DC soon with close outpatient f/u obs Emphysema. Mild tree-in-bud opacities w/ poss scarring. Several foci of bronchiectasis RUSSELL XAVIER MD Jan 31, 2017 14:08
[2017-01-31] MEDS ORDERED: DEXTROSE 50% 25 GM / 50ML DISP.SYRIN. IV PRN (14:15)
[2017-01-31] MEDS ORDERED: oxyCODONE/APAP 5/325 1 TAB TABLET PO PRN (14:15)
[2017-01-31] MEDS ORDERED: NICOTINE 14MG PATCH. TD PRN (14:45)
[2017-01-31] MEDS ORDERED: POLYETHYLENE GLYCOL 3350 17 GM PACKET. PO PRN (14:45)
[2017-01-31] MEDS ORDERED: NICOTINE POLACRILEX 2MG GUM PACKAGE of 12. BC PRN (14:45)
[2017-01-31] MEDS: oxyCODONE IR 5 MG TABLET PO PRN (14:58)
[2017-01-31 15:16] VITALS: BP 127/57
[2017-01-31] MEDS: IPRATRPIUM/ALBUTEROL 0.5/2.5MG 3 ML NEBU. NEB SCH ×2 (15:29→19:20)
--- NOTE | 2017-01-31 15:34 | PDOC ---
Provider Note Provider Note dictated LAN DELUCA MD Jan 31, 2017 15:34
--- NOTE | 2017-01-31 16:24 | CONS ---
DATE OF CONSULTATION: 01/31/2017 PULMONARY CONSULTATION DATE OF SERVICE: 01/31/2017 ATTENDING PHYSICIAN: Dr. Deirdre Ceballos. REASON FOR CONSULTATION: Abnormal CT chest, chest pain and lung nodule. HISTORY OF PRESENT ILLNESS: The patient is a 66-year-old female who has been a smoker since age 12 and smoking currently 1 pack per day. She presented to the hospital complaining of left-sided rib pain. She states that she felt like a knot in her ribcage area and this has been going on for past 1 month. The patient felt better after receiving Toradol. The patient underwent imaging study initially with a chest x-ray, which was reviewed by me. There were no acute findings and a questionable nodule in the right lung base. The patient then underwent CT chest, which was also reviewed by me. She has evidence of emphysema. She had mild tree-in-bud opacities in the right upper lobe, which could be due to scarring versus infection. She has evidence of bronchiectasis involving the left lower lobe. She has a small noncalcified nodule in the left upper lobe, raising the possibility of a malignant nodule. Upon further questioning, she said she had lost about 30 pounds in last 6 months. She does not give any history of hemoptysis. She has a mild cough, which is not productive of any purulent sputum production, no hemoptysis. She has no GI or urinary symptoms. I have been asked to see her for further evaluation. PAST MEDICAL HISTORY: Significant for COPD, suspect severe with ongoing tobaccoism. History of a spot in the lung told to her in [place] about 7 years ago. We do not have any old x-ray for comparison. History of diabetes, history of hypertension. PAST SURGICAL HISTORY: Including appendectomy, hysterectomy, left breast reduction and ____. ALLERGIES: ERYTHROMYCIN and HORSE DANDER. MEDICATIONS: Reviewed as listed in the MRAD including DuoNeb and oxycodone. REVIEW OF SYSTEMS: Twelve-point system obtained. Pertinent positives discussed in my history of present illness, otherwise noncontributory. All systems that were negative were reviewed as well. SOCIAL HISTORY: Smoker since age 12, smoking up to 1 pack per day. FAMILY HISTORY: Noncontributory to lungs. PHYSICAL EXAMINATION: VITAL SIGNS: Blood pressure stable, afebrile, pulse ox 93% on room air. NECK: Supple, no JVD. LUNGS: Diminished breath sounds. There is tenderness to palpation on the left rib area. CARDIOVASCULAR: Regular rate and rhythm. ABDOMEN: Soft, nontender. EXTREMITIES: No pitting edema. LABORATORY DATA: Reviewed. White cell count 9.0, hemoglobin is 15.6. Glucose was 603, now down to 305. Urine drug screen negative for acetone. IMPRESSION: 1. Left-sided rib pain, probably related to inflammatory etiology. No rib lesions seen on the plain films and CT chest. 2. Abnormal CT chest with a noncalcified 8 mm nodule in the left upper lobe. The patient also has evidence of bronchiectasis involving the left lower lobe and some tree-in-bud opacities in the right upper lobe, which may be due to scarring as she gives no symptoms to suggest acute infection. 3. 55 years of tobacco use and continues to smoke cigarettes, suspect underlying severe chronic obstructive pulmonary disease. RECOMMENDATIONS: 1. The nodule is small and would not be able to show hypermetabolic activity on a PET scan, size is borderline for that. At this point, I would recommend repeating a CT chest in 3-4 months due to long history of tobacco use. 2. Unexplained weight loss of 30 pounds with no obvious significant pathological mass in the lungs except for a tiny nodule. We will also obtain CT abdomen and pelvis to rule out any occult malignancy. 3. We will obtain full PFTs to assess the severity of lung disease. 4. Smoking cessation counseling provided. 5. Pain control and antiinflammatory medications. 6. The patient can be discharged in 24 hours. LAN DELUCA MD DR: ELO/michael JOB#: [id number] / [id number] MOLINA
[2017-01-31] MEDS ORDERED: INSULIN ASPART 300 UNITS/3 ML INSULN.PEN SQ ONE (16:30)
[2017-01-31] MEDS ORDERED: INSULIN ASPART 300 UNITS/3 ML INSULN.PEN SQ SCH (17:00)
[2017-01-31] MEDS ORDERED: INSULIN DETEMIR 300 UNITS/3 ML INSULN.PEN. SQ ONE (17:00)
[2017-01-31] MEDS: INSULIN ASPART 300 UNITS/3 ML INSULN.PEN SQ SCH ×2 (17:40→21:37)
[2017-01-31 19:00] VITALS: BP 111/42
[2017-01-31] MEDS ORDERED: PNEUMOCOCCAL VAX SCREEN BY RX. MC PRN (19:30)
[2017-01-31] MEDS ORDERED: PNEUMOC CONJ VACC 23-VALENT 0.5 ML VIAL. VAX IM ONE (20:00)
[2017-01-31] MEDS ORDERED: FLU VACC QS2017-18 (36MOS+)/PF 0.5 ML SYRINGE. VAX IM ONE (20:00)
[2017-01-31 22:50] VITALS: BP 105/43
[2017-02-01 02:58] VITALS: BP 116/51
[2017-02-01 05:35] LABS: BASO % 0 % (0-3); EOS % 2 % (0-3); HEMATOCRIT 40.4 % (36.0-47.0); LYMPH # 2.9 x10^3/uL (1.0-4.8); LYMPH % 31 % (24-48); MEAN CORPUSCULAR HEMOGLOBIN 32 pg (25-35); MEAN CORPUSCULAR HGB CONC 35 g/dL (31-37); MEAN CORPUSCULAR VOLUME 93 fL (79-100); MONO % 9 % (0-9); NEUT % 59 % (31-73); PLATELET COUNT 213 x10^3/uL (140-400); RED BLOOD COUNT 4.37 x10^6/uL (3.50-5.40); RED CELL DISTRIBUTION WIDTH 13.5 % (11.5-14.5); WHITE BLOOD COUNT 9.4 x10^3/uL (4.0-11.0)
[2017-02-01 05:47] LABS: ALBUMIN 2.6 g/dL (3.4-5.0); ALBUMIN/GLOBULIN RATIO 0.8 (1.0-1.7); CALCIUM 8.4 mg/dL (8.5-10.1); CREATININE 0.7 mg/dL (0.6-1.0); GFR 84.2; POTASSIUM 3.8 mmol/L (3.5-5.1); TOTAL BILIRUBIN 0.2 mg/dL (0.2-1.0)
[2017-02-01 07:00] VITALS: BP 127/50
[2017-02-01] MEDS ORDERED: IOHEXOL 300 MG/ML 75 ML VIAL IV ONE (07:00)
[2017-02-01] MEDS ORDERED: IOHEXOL 240 MG/ML 50ML VIAL. PO ONE (07:00)
[2017-02-01] MEDS ORDERED: CONTRAST GIVEN MC PRN (07:15)
[2017-02-01] MEDS ORDERED: IOHEXOL 240 MG/ML 50ML VIAL. ONE (07:20)
[2017-02-01] MEDS ORDERED: IOHEXOL 300 MG/ML 75 ML VIAL ONE (07:20)
[2017-02-01] MEDS: IPRATRPIUM/ALBUTEROL 0.5/2.5MG 3 ML NEBU. NEB SCH ×3 (07:23→14:52)
[2017-02-01] MEDS: oxyCODONE IR 5 MG TABLET PO PRN ×2 (07:24→13:29)
[2017-02-01] MEDS: INSULIN ASPART 300 UNITS/3 ML INSULN.PEN SQ SCH ×4 (07:30→12:21)
[2017-02-01] MEDS ORDERED: POLYETHYLENE GLYCOL 3350 17 GM PACKET. PO SCH (09:00)
--- NOTE | 2017-02-01 10:55 | RAD ---
Indication 30 pound weight loss. Assess for occult malignancy. Axial images through the abdomen and pelvis were obtained. Both oral and IV contrast were administered. Approximately 75 cc of Omnipaque 300 was administered intravenously. Note is made of a previous examination of the abdomen and pelvis 10/08/2016. There are some chronic pleural-parenchymal changes at the lung bases. No acute finding is seen in either lung base. The liver and spleen appear unremarkable and the gallbladder appears grossly normal. No pancreatic pathology is seen. No adrenal or significant renal anomaly is seen. There is a right renal cyst similar to the previous exam. No significant adenopathy is seen. An acute finding is not apparent in the abdomen. There is substantial atherosclerotic plaquing involving the abdominal aorta. In the pelvis no focal mass inflammatory process or acute finding is seen. IMPRESSION: No acute or definite significant finding is seen in the abdomen or pelvis PQRS Compliance Statement: One or more of the following individualized dose reduction techniques were utilized for this examination: 1. Automated exposure control 2. Adjustment of the mA and/or kV according to patient size 3. Use of iterative reconstruction technique
--- NOTE | 2017-02-01 11:14 | PDOC ---
PULMONARY PROGRESS NOTES Subjective NO SOA Vitals Vital Signs Date Time Temp Pulse Resp B/P (MAP) Pulse Ox O2 Delivery O2 Flow Rate FiO2 02/01/17 08:28 Room Air 02/01/17 07:23 95 02/01/17 07:00 97.5 17 127/50 (75) 97.5 02/01/17 02:58 79 ROS: No Nausea, No Abdominal Pain, No Increase Cough General: Alert, No acute distress Lungs: Clear Cardiovascular: S1 Abdomen: Soft Neuro Exam: Alert Extremities: No Edema Skin: Warm Labs Laboratory Tests Test 01/31/17 09:55 01/31/17 10:35 01/31/17 11:55 01/31/17 12:47 White Blood Count 9.0 x10^3/uL (4.0-11.0) Red Blood Count 4.88 x10^6/uL (3.50-5.40) Hemoglobin 15.6 g/dL (12.0-15.5) Hematocrit 45.7 % (36.0-47.0) Mean Corpuscular Volume 94 fL (79-100) Mean Corpuscular Hemoglobin 32 pg (25-35) Mean Corpuscular Hemoglobin Concent 34 g/dL (31-37) Red Cell Distribution Width 13.4 % (11.5-14.5) Platelet Count 223 x10^3/uL (140-400) Neutrophils (%) (Auto) 66 % (31-73) Lymphocytes (%) (Auto) 22 % (24-48) Monocytes (%) (Auto) 9 % (0-9) Eosinophils (%) (Auto) 1 % (0-3) Basophils (%) (Auto) 1 % (0-3) Neutrophils # (Auto) 6.0 x10^3uL (1.8-7.7) Lymphocytes # (Auto) 2.0 x10^3/uL (1.0-4.8) Monocytes # (Auto) 0.8 x10^3/uL (0.0-1.1) Eosinophils # (Auto) 0.1 x10^3/uL (0.0-0.7) Basophils # (Auto) 0.1 x10^3/uL (0.0-0.2) Prothrombin Time 11.8 SEC (11.7-14.0) Prothromb Time International Ratio 0.9 (0.8-1.1) Sodium Level 136 mmol/L (136-145) Potassium Level 4.2 mmol/L (3.5-5.1) Chloride Level 100 mmol/L (98-107) Carbon Dioxide Level 27 mmol/L (21-32) Anion Gap 9 (6-14) Blood Urea Nitrogen 22 mg/dL (7-20) Creatinine 0.8 mg/dL (0.6-1.0) Estimated GFR (Cockcroft-Gault) 72.2 Glucose Level 603 mg/dL (70-99) Hemoglobin A1c 14.8 % (4.8-5.6) Calcium Level 9.1 mg/dL (8.5-10.1) Total Bilirubin 0.2 mg/dL (0.2-1.0) Direct Bilirubin < 0.1 mg/dL (0.0-0.2) Aspartate Amino Transf (AST/SGOT) 12 U/L (15-37) Alanine Aminotransferase (ALT/SGPT) 19 U/L (14-59) Alkaline Phosphatase 178 U/L (46-116) Creatine Kinase 44 U/L (26-192) Creatine Kinase MB (Mass) 1.1 ng/mL (0.0-3.6) Creatine Kinase MB Relative Index % (0-4) Troponin I Quantitative < 0.017 ng/mL (0.000-0.055) < 0.017 ng/mL (0.000-0.055) Total Protein 6.7 g/dL (6.4-8.2) Albumin 3.1 g/dL (3.4-5.0) Lipase 234 U/L (73-393) Acetone Level Neg (NEG) Urine Collection Type Unknown Urine Color Yellow Urine Clarity Clear Urine pH 5.5 Urine Specific [place] >=1.030 Urine Protein Negative mg/dL (NEG-TRACE) Urine Glucose (UA) >=1000 mg/dL (NEG) Urine Ketones (Stick) Negative mg/dL (NEG) Urine Blood Negative (NEG) Urine Nitrite Negative (NEG) Urine Bilirubin Small (NEG) Urine Urobilinogen Dipstick 0.2 mg/dL (0.2 mg/dL) Urine Leukocyte Esterase Negative (NEG) Urine RBC 0 /HPF (0-2) Urine WBC Occ /HPF (0-4) Urine Squamous Epithelial Cells Occ /LPF Urine Bacteria 0 /HPF (0-FEW) Urine Yeast Present /HPF Glucose (Fingerstick) 305 mg/dL (70-99) Test 01/31/17 15:00 01/31/17 17:19 01/31/17 20:54 01/31/17 23:15 Troponin I Quantitative < 0.017 ng/mL (0.000-0.055) < 0.017 ng/mL (0.000-0.055) Glucose (Fingerstick) 383 mg/dL (70-99) 231 mg/dL (70-99) Test 02/01/17 04:35 02/01/17 07:51 White Blood Count 9.4 x10^3/uL (4.0-11.0) Red Blood Count 4.37 x10^6/uL (3.50-5.40) Hemoglobin 14.0 g/dL (12.0-15.5) Hematocrit 40.4 % (36.0-47.0) Mean Corpuscular Volume 93 fL (79-100) Mean Corpuscular Hemoglobin 32 pg (25-35) Mean Corpuscular Hemoglobin Concent 35 g/dL (31-37) Red Cell Distribution Width 13.5 % (11.5-14.5) Platelet Count 213 x10^3/uL (140-400) Neutrophils (%) (Auto) 59 % (31-73) Lymphocytes (%) (Auto) 31 % (24-48) Monocytes (%) (Auto) 9 % (0-9) Eosinophils (%) (Auto) 2 % (0-3) Basophils (%) (Auto) 0 % (0-3) Neutrophils # (Auto) 5.5 x10^3uL (1.8-7.7) Lymphocytes # (Auto) 2.9 x10^3/uL (1.0-4.8) Monocytes # (Auto) 0.8 x10^3/uL (0.0-1.1) Eosinophils # (Auto) 0.1 x10^3/uL (0.0-0.7) Basophils # (Auto) 0.0 x10^3/uL (0.0-0.2) Sodium Level 141 mmol/L (136-145) Potassium Level 3.8 mmol/L (3.5-5.1) Chloride Level 107 mmol/L (98-107) Carbon Dioxide Level 26 mmol/L (21-32) Anion Gap 8 (6-14) Blood Urea Nitrogen 22 mg/dL (7-20) Creatinine 0.7 mg/dL (0.6-1.0) Estimated GFR (Cockcroft-Gault) 84.2 BUN/Creatinine Ratio 31 (6-20) Glucose Level 170 mg/dL (70-99) Calcium Level 8.4 mg/dL (8.5-10.1) Total Bilirubin 0.2 mg/dL (0.2-1.0) Aspartate Amino Transf (AST/SGOT) 8 U/L (15-37) Alanine Aminotransferase (ALT/SGPT) 17 U/L (14-59) Alkaline Phosphatase 118 U/L (46-116) Total Protein 6.0 g/dL (6.4-8.2) Albumin 2.6 g/dL (3.4-5.0) Albumin/Globulin Ratio 0.8 (1.0-1.7) Glucose (Fingerstick) 152 mg/dL (70-99) Laboratory Tests Test 01/31/17 11:55 01/31/17 12:47 01/31/17 15:00 01/31/17 17:19 Troponin I Quantitative < 0.017 ng/mL (0.000-0.055) < 0.017 ng/mL (0.000-0.055) Glucose (Fingerstick) 305 mg/dL (70-99) 383 mg/dL (70-99) Test 01/31/17 20:54 01/31/17 23:15 02/01/17 04:35 02/01/17 07:51 Glucose (Fingerstick) 231 mg/dL (70-99) 152 mg/dL (70-99) Troponin I Quantitative < 0.017 ng/mL (0.000-0.055) White Blood Count 9.4 x10^3/uL (4.0-11.0) Red Blood Count 4.37 x10^6/uL (3.50-5.40) Hemoglobin 14.0 g/dL (12.0-15.5) Hematocrit 40.4 % (36.0-47.0) Mean Corpuscular Volume 93 fL (79-100) Mean Corpuscular Hemoglobin 32 pg (25-35) Mean Corpuscular Hemoglobin Concent 35 g/dL (31-37) Red Cell Distribution Width 13.5 % (11.5-14.5) Platelet Count 213 x10^3/uL (140-400) Neutrophils (%) (Auto) 59 % (31-73) Lymphocytes (%) (Auto) 31 % (24-48) Monocytes (%) (Auto) 9 % (0-9) Eosinophils (%) (Auto) 2 % (0-3) Basophils (%) (Auto) 0 % (0-3) Neutrophils # (Auto) 5.5 x10^3uL (1.8-7.7) Lymphocytes # (Auto) 2.9 x10^3/uL (1.0-4.8) Monocytes # (Auto) 0.8 x10^3/uL (0.0-1.1) Eosinophils # (Auto) 0.1 x10^3/uL (0.0-0.7) Basophils # (Auto) 0.0 x10^3/uL (0.0-0.2) Sodium Level 141 mmol/L (136-145) Potassium Level 3.8 mmol/L (3.5-5.1) Chloride Level 107 mmol/L (98-107) Carbon Dioxide Level 26 mmol/L (21-32) Anion Gap 8 (6-14) Blood Urea Nitrogen 22 mg/dL (7-20) Creatinine 0.7 mg/dL (0.6-1.0) Estimated GFR (Cockcroft-Gault) 84.2 BUN/Creatinine Ratio 31 (6-20) Glucose Level 170 mg/dL (70-99) Calcium Level 8.4 mg/dL (8.5-10.1) Total Bilirubin 0.2 mg/dL (0.2-1.0) Aspartate Amino Transf (AST/SGOT) 8 U/L (15-37) Alanine Aminotransferase (ALT/SGPT) 17 U/L (14-59) Alkaline Phosphatase 118 U/L (46-116) Total Protein 6.0 g/dL (6.4-8.2) Albumin 2.6 g/dL (3.4-5.0) Albumin/Globulin Ratio 0.8 (1.0-1.7) Medications Active Scripts Medications Dose Route/Sig Max Daily Dose Days Date Category Zofran Odt (Ondansetron) 4 Mg Tab.rapdis 4 Mg PO BID PRN 10/08/16 Rx Foster 5-325 Tablet (Acetaminophen/Hydrocodone Bitart) 1 Each Tablet 1 Tab PO PRN Q6HRS PRN 10/08/16 Rx Foster 5-325 Tablet (Acetaminophen/Hydrocodone Bitart) 1 Each Tablet 1 Tab PO PRN Q6HRS PRN 04/08/16 Rx Impression . 1. Left-sided rib pain, probably related to inflammatory etiology. No rib lesions seen on the plain films and CT chest. 2. Abnormal CT chest with a noncalcified 8 mm nodule in the left upper lobe. The patient also has evidence of bronchiectasis involving the left lower lobe and some tree-in-bud opacities in the right upper lobe, which may be due to scarring as she gives no symptoms to suggest acute infection. 3. 55 years of tobacco use and continues to smoke cigarettes, suspect underlying severe chronic obstructive pulmonary disease. Plan . 1. The nodule is small and would not be able to show hypermetabolic activity on a PET scan, size is borderline for that. At this point, I would recommend repeating a CT chest in 3-4 months due to long history of tobacco use. 2. Unexplained weight loss of 30 pounds with no obvious significant pathological mass in the lungs except for a tiny nodule. CT abdomen and pelvis with no occult malignancy. 3. We will obtain full PFTs to assess the severity of lung disease. 4. Smoking cessation counseling provided. 5. Pain control and antiinflammatory medications. 6. The patient can be discharged today 7. f/u given with me in APR with ct chest prior to f/u on nodule LAN DELUCA MD Feb 01, 2017 11:14
[2017-02-01] MEDS ORDERED: OXYC1TAB7 PO (11:52)
[2017-02-01] MEDS ORDERED: GLIM2TAB PO (11:57)
[2017-02-01] MEDS ORDERED: METF1000 PO (11:57)
[2017-02-01] MEDS ORDERED: GLIMEPIRIDE 2 MG TABLET. PO SCH (12:00)
--- NOTE | 2017-02-01 14:04 | PDOC3 ---
Discharge Summary [facility] Date of Admission: Jan 31, 2017 Discharge Date: Feb 01, 2017 Admitting Diagnosis left lower rib pain, need to rule out mets vs. inflammation left lung upper lob 8mm nodule, MAG? tobaccoism uncontrolled dm2 htn COPD emphysema Problems: Final Diagnosis CONSULTS pulm Brief Hospital Course Ms. Bean is a 66 old F, smoking, not taking meds for DM2, HTN, came to ER for left lower rib pain, with a lump. CT didnot show any rib lump, but showed a 8mm at left lung lobe which could be malignancy. abd CT neg. concern about lung Ca and pulm consulted, would like to fu as outpt, may need PFT, and repeat CT in 3 months. HBA1C 14, i talked to pt about meds, and she prefers pills for now, and agreed to fu with PCP soon may need switch to insulin. dc time 35min. General: Alert, Oriented X3, Cooperative, No acute distress HEENT: Atraumatic, PERRLA, EOMI, Mucous membr. moist/pink Lungs: Normal air movement, Other (no wheeze) Heart: no gallops, no murmurs Abdomen: Normal bowel sounds, Soft Rectal Exam: not examined Extremities: No clubbing, No edema, Normal pulses Skin: No rashes, No breakdown, No significant lesion Neuro: Normal speech, Normal tone, Sensation intact Psych/Mental Status: Mood NL left lower rib cage 1 lump about 2cm, soft, tenderness, fixed Patient History: Family history: Asthma G8 SISTER G8 SISTER Family history: Cardiovascular disease (situation) 32 MOTHER Family history: Diabetes mellitus (situation) 32 MOTHER G8 SISTER Problems: Disposition home CONDITION AT DISCHARGE: Stable Diet regular Scheduled Glimepiride (Amaryl), 2 MG PO DAILY Metformin Hcl (Glucophage), 1,000 MG PO BIDWMEALS Scheduled PRN Ondansetron (Zofran Odt), 4 MG PO BID PRN for NAUSEA/VOMITING Oxycodone Hcl/Acetaminophen (Oxycodone-Acetaminophen 5-325), 1 TAB PO PRN Q4HRS PRN for PAIN Discontinued Medications Atenolol (Atenolol), 1 TAB PO DAILY, (Reported) Cyclobenzaprine Hcl (Cyclobenzaprine Hcl), 1 TAB PO QHS, (Reported) Glimepiride (Glimepiride), 1 TAB PO DAILY, (Reported) Hydrocodone/Apap 5-325 (Skippers 5-325 Tablet), 1 TAB PO PRN Q6HRS PRN for PAIN Hydrocodone/Apap 5-325 (Skippers 5-325 Tablet), 1 TAB PO PRN Q6HRS PRN for PAIN Lisinopril (Lisinopril), 1 TAB PO DAILY, (Reported) Follow Up DR. DELUCA in 2 weeks MYRA KINGSTON MD Feb 01, 2017 14:04
--- NOTE | 2017-02-02 16:06 | RESP ---
DATE OF SERVICE: 02/01/2017 The patient's FVC was 2.41, which is 82% predicted. FEV1 was 1.69 L, which is 75% predicted. FEV1/FVC ratio was mildly reduced. There was an excellent response to bronchodilators with a 22% improvement in FVC and 12% improvement in FEV1. Lung volume showed a total lung capacity of 146% predicted, residual volume 255% predicted, diffusion capacity 96% predicted. IMPRESSION: 1. Mild obstructive airway disease. 2. Excellent response to bronchodilators suggestive of a component of reactive airway disease. 3. Lung volumes consistent with air trapping and hyperinflation. 4. Normal diffusion capacity. LAN DELUCA MD DR: ELO/michael JOB#: [id number] / [id number]
== END 2017-02-01 15:43 | disposition home or self-care (01) ==
LOC: ER 08:29 → INTOOBSV 11:12 → 5 NORTH 11:12
PROVIDERS: ADMIT Internal Medicine; ATTEND Internal Medicine
DX: R91.1 Solitary pulmonary nodule (principal); F17.210 Nicotine dependence, cigarettes, uncomplicated; E11.65 Type 2 diabetes mellitus with hyperglycemia; I10 Essential (primary) hypertension; J43.9 Emphysema, unspecified; J47.9 Bronchiectasis, uncomplicated; Z82.49 Family history of ischemic heart disease and other diseases of the circulatory system; Z82.5 Family history of asthma and other chronic lower respiratory diseases; Z83.3 Family history of diabetes mellitus; Z90.49 Acquired absence of other specified parts of digestive tract; Z90.710 Acquired absence of both cervix and uterus; Z23 Encounter for immunization
CPT/HCPCS: 36415; 71101; 71260; 74177; 80048; 80053; 80076; 81001; 82010; 82553; 82962; 83036; 83690; 84484; 85025; 85610; 90471; 90472; 90686; 90732; 93005; 94060; 94640; 94729; 94760; 96361; 96372; 96374; 96375; 99285; G0378; J1815; J1885; J7030; J7620; Q9966; Q9967; G0379

== ENCOUNTER → 2017-03-29 | Outpatient (CLI) | payer BC ==
[~2017-03-29] MED LIST changes: +GLIM2TAB PO; +METF1000 PO; +OXYC1TAB7 PO
--- NOTE | 2017-03-29 09:38 | KCIC ---
Bone mineral density exam History: Postmenopausal Comparison: None Findings: Bone mineral density examination utilizing DEXA was performed. Left hip bone mineral density of 0.682 g/cm2 corresponds with a T score -2.1, Z score -0.9. The bone mineral density of the lumbar spine was 0.908 g/cm2 which corresponds with a T-score of -1.3, Z score 0.5. By World Congress on Osteoporosis criteria, a T score of 0 to-1 SD is considered to be within normal limits. A T score of -1 to -2.5 SD is considered osteopenia. A T score less than -2.5 SD is considered osteoporosis Impression: 1. There is osteopenia of the lumbar spine and the left hip. Electronically signed by: Steve Darnell MD (03/29/2017 9:35 AM) [id number]
--- NOTE | 2017-03-29 11:25 | KCIC ---
US CHEST History: Left inferior, anterior rib cage pain, lipoma of the anterior chest wall Comparison: None. Findings: Sonographic images directed toward the site of concern labeled as the left inferior, anterior chest wall area are submitted. No sonographic abnormality is demonstrated. Impression: 1. No sonographic abnormality is demonstrated at the site of pain. Electronically signed by: Steve Darnell MD (03/29/2017 11:22 AM) [email or web address]
== END | disposition home or self-care (01) ==
LOC: KCIC DEXA 08:21
PROVIDERS: ATTEND Family Medicine
DX: M85.88 Other specified disorders of bone density and structure, other site (principal); Z78.0 Asymptomatic menopausal state
CPT/HCPCS: 76604; 77080

== ENCOUNTER 2017-12-06 23:27 | Emergency (ER) | payer MEDICARE, BC ==
[2017-12-06] MEDS: HYDROcodone/APAP 5/325MG 1 TAB TABLET PO (23:45)
[2017-12-06] MEDS: IBUPROFEN 600 MG TABLET. PO (23:45)
== END 2017-12-07 01:40 | disposition home or self-care (01) ==
LOC: ER 12-07 01:40
DX: M16.11 Unilateral primary osteoarthritis, right hip (principal); E11.9 Type 2 diabetes mellitus without complications; Z88.1 Allergy status to other antibiotic agents; Z91.048 Other nonmedicinal substance allergy status
CPT/HCPCS: 73501; 99283